=== PATIENT | female | born 1975 | race Caucasian/White ===

== ENCOUNTER 2016-08-22 21:09 | Emergency (ER) | payer SELFPAY ==
[~2016-08-22 21:09] MED LIST: PRENAT PO
== END 2016-08-22 22:25 | disposition left against medical advice (07) ==
LOC: E/R 21:09
DX: Z53.21 Procedure and treatment not carried out due to patient leaving prior to being seen by health care provider (principal)

== ENCOUNTER 2016-08-22 23:02 | Outpatient (CLI) | payer MEDICAID ==
[~2016-08-22] VITALS: Ht 144.8 cm; Wt 66.8 kg
[2016-08-22 23:29] VITALS: Ht 144.8 cm; Wt 66.8 kg
[2016-08-22 23:30] VITALS: BP 109/53; PULSE 109; RESP 18
[2016-08-22] MEDS ORDERED: LACTATED RINGER'S 1,000 ML IV SCH (23:48)
[2016-08-23] MEDS ORDERED: CEFAZOLIN 2 GM/50 ML (PMX) 50 ML IV ONE
[2016-08-23 00:22] LABS: ADD SCAN DIFF NO
[2016-08-23 00:33] LABS: BASOPHILS % 0.2 % (0.0-2.0); EOSINOPHILS # 0.1 10^3/ul (0.0-0.5); EOSINOPHILS % 0.9 % (0.0-7.0); HEMATOCRIT 33.7 % (37.0-47.0); HEMOGLOBIN 11.8 g/dl (12.0-16.0); LYMPHOCYTES % 12.6 % (15.0-51.0); MEAN CORPUSCULAR HEMOGLOBIN 31.8 pg (29.0-33.0); MEAN CORPUSCULAR VOLUME 90.8 fl (82.0-101.0); MEAN PLATELET VOLUME 13.1 fl (7.4-10.4); MONOCYTE # 0.7 10^3/ul (0.3-0.9); MONOCYTES % 8.3 % (0.0-11.0); NEUTROPHIL # 6.4 10^3/ul (1.6-7.5); NEUTROPHILS % 77.5 % (39.0-77.0); PLATELET COUNT 128 10^3/UL (140-415); RED BLOOD COUNT 3.71 10^6/ul (4.20-5.40); RED CELL DISTRIBUTION WIDTH 12.7 % (11.5-14.5); WHITE BLOOD COUNT 8.2 10^3/ul (4.8-10.8)
[2016-08-23 00:38] LABS: ALBUMIN 3.2 g/dl (3.3-4.9)
[2016-08-23 00:39] LABS: POTASSIUM 3.7 mmol/L (3.5-5.1)
[2016-08-23 00:41] LABS: ALBUMIN/GLOBULIN RATIO 1.06; BILIRUBIN,INDIRECT 0.2 mg/dl (0-1.1); BILIRUBIN,TOTAL 0.2 mg/dl (0.2-1.3); CREATININE 0.53 mg/dl (0.44-1.00); TOTAL PROTEIN 6.2 g/dl (6.1-8.1)
[2016-08-23 00:42] LABS: CALCIUM 8.3 mg/dl (8.4-10.2)
[2016-08-23 01:13] LABS: ADD UMIC YES; URINE BILIRUBIN (Dip) NEGATIVE (NEGATIVE); URINE BLOOD (Dip) NEGATIVE (NEGATIVE); URINE COLOR LT. YELLOW (YELLOW); URINE GLUCOSE (Dip) NEGATIVE (NEGATIVE); URINE KETONES (Dip) NEGATIVE (NEGATIVE); URINE LEUKOCYTE ESTERASE (Dip) 2+ (NEGATIVE); URINE NITRITE (Dip) NEGATIVE (NEGATIVE); URINE TOTAL PROTEIN (Dip) NEGATIVE (NEGATIVE); URINE UROBILINOGEN (Dip) 1.0 E.U./dL (0.1-1.0)
[2016-08-23 01:37] LABS: BACTERIA,URINE MANY; MUCUS,URINE MANY; SQUAMOUS EPITHELIAL CELL,UR MANY; URINE RBCS 0-2 /HPF (0)
--- NOTE | 2016-08-23 03:27 | QN ---
Documentation Comment [facility]/ Dr Zhao 41 y.o. A2 with an IUP at 34w 4 d with c/o feeling, weak, shaky, dizzy. Pt has a Rx for Keflex on her that she was given for a UTI in April and says she took 5 days worth of it but there are still a number of pills in that bottle ? No UTI sx's currently. Had a clinic appt 2 days ago but wasn't able to go. Pt reports green phlegm and denies having a cough although she has a dry cough repeatedly while talking to her. Denies fever, chills, nausea, vomiting. PMHx: pt states she was told she has a UTI now. Not yet treated. PSHx: C/S x 1. POBHx: x 3. C/S x 1. NKDA. O2 sat 94% on RA, 99-100% on O2. T=98.1. NK=320/53. Lungs clear to auscultation, no rales or crackles, with decent air movement. WBC 8.2. Hgb 11.8. CMP wnl. U/A 2+ leukocytes. 0-2 RBC's, many bacteria and squamous epithelial cells. NST: baseline 130 bpm with acels to 160 bpm. No decels. No UC's. A: IUP at 34w 4 d with decreased O2 saturation with a URI? UTI. P: IV hydration. IV Ancef 2 grams x 1. Azithromycin 500 mg p.o. x 1 now and will give a Rx for the rest just in case she does not go to the ER. Will have pt assessed in the ER as pt is not very helpful, nor is her spouse, in trying to delineate the severity of the sx's she has. She does report feeling better after hydration and IV Ancef but still says she feels very out of breath. JOSE TOM MD Aug 23, 2016 03:21
[2016-08-23] MEDS ORDERED: AZITHROMYCIN 250 MG TAB PO ONE (03:30)
--- NOTE | 2016-08-23 06:45 | TRIAGE ---
OB Triage Datetime Report Generated by CPN: 08/23/2016 06:45 Datetime: 08/23/2016 22:55 Stage of : OB Triage Datetime: 08/23/2016 05:02 Stage of : OB Triage Datetime: 08/23/2016 05:00 Stage of : OB Triage Labor Evaluation Frequency: 0 Monitor Mode: External Heart Rate FHR Baseline Rate: 125 Monitor Mode: External US FHR Baseline Changes: No Baseline Change Variability: Moderate 6-25 bpm Accelerations: 15X15 Decelerations: None Category: Category I Datetime: 08/23/2016 04:51 Stage of : OB Triage Datetime: 08/23/2016 04:00 Stage of : OB Triage Labor Evaluation Frequency: 0 Monitor Mode: External Heart Rate FHR Baseline Rate: 125 Monitor Mode: External US FHR Baseline Changes: No Baseline Change Variability: Moderate 6-25 bpm Accelerations: 15X15 Decelerations: None Category: Category I Datetime: 08/23/2016 03:27 Stage of : OB Triage Datetime: 08/23/2016 03:00 Stage of : OB Triage Labor Evaluation Frequency: 0 Monitor Mode: External Heart Rate FHR Baseline Rate: 135 Monitor Mode: External US FHR Baseline Changes: No Baseline Change Variability: Moderate 6-25 bpm Accelerations: 15X15 Decelerations: None Category: Category I Datetime: 08/23/2016 02:30 Stage of : OB Triage Datetime: 08/23/2016 02:00 Labor Evaluation Frequency: 0 Monitor Mode: External Heart Rate FHR Baseline Rate: 125 Monitor Mode: External US FHR Baseline Changes: No Baseline Change Variability: Moderate 6-25 bpm Accelerations: 15X15 Decelerations: None Category: Category I Datetime: 08/23/2016 01:00 Labor Evaluation Frequency: 0 Monitor Mode: External Heart Rate FHR Baseline Rate: 135 Monitor Mode: External US FHR Baseline Changes: No Baseline Change Variability: Moderate 6-25 bpm Accelerations: 15X15 Decelerations: None Category: Category I Datetime: 08/23/2016 00:54 Comments: LOSS OF CONTACT Datetime: 08/23/2016 00:00 Labor Evaluation Frequency: 0 Monitor Mode: External Heart Rate FHR Baseline Rate: 145 Monitor Mode: External US FHR Baseline Changes: No Baseline Change Variability: Moderate 6-25 bpm Accelerations: 15X15 Decelerations: None Category: Category I Datetime: 08/22/2016 23:52 EGA: 34.3 Vaginal Exam Membrane Status: Intact Datetime: 08/22/2016 23:06 Stage of : OB Triage Time of Arrival: 08/22/2016 22:50 Arrived By: Wheelchair Arrived From: Home Chief Complaint: WEAK, DIZZY, SHAKEY X3 DAYS /PT STATES SHE WAS CALLED FROM THE OFFICE TWO DAYS AG O AND HAS A UTI BUT HAS NOT BEEN TX FOR IT WAS UNABLE TO GO TO OFFICE VISIT Movement: Present Rupture of Membranes: Unsure Vaginal Bleeding: None Vaginal Discharge: Present Recent Sexual Intercouse: Denies Abdominal Trauma: Not Applicable Time Provider Notified: 08/23/2016 23:00 Provider Notified: DR TOM (Annotations: Data stored by Beth on behalf of user) Initial Plan: CALL CRISTIANE LUCIANO Maternal Assessment Level of Consciousness: Fully Conscious DTR's/Clonus: DTRs 2+; No Clonus Headache: Denies Blurred Vision: No Respiratory Effort: Unlabored; Regular Rhythm; Equal Expansion Breath Sounds, Left: Clear and Equal Breath Sounds, Right: Clear and Equal Nausea/Vomiting: Denies RUQ Epigastric Pain: Denies Lower Extremities Edema: None Degree: None Upper Extremities Edema: None Degree: None Facial Edema: None Temperature Route: Oral Fall Risk Assessment History of Falling: (0) No Secondary Diagnosis: (0) No Ambulatory Aid: (0) Bedrest/Nurse Assist IV Therapy: (0) No Gait: (0) Normal/Bedrest/Immobile Mental Status: (0) Oriented to Own Ability Fall Score: 0 Fall Risk Score Definition: No Risk: No action required Monitor Mode: External Monitor Mode: External US Pain Assessment Pain Scale: 5 Pain Presence: Intermittent Pain Location: Abdomen (Annotations: LT SIDE OF ABDOMEN) Datetime: 08/22/2016 23:00 Stage of : OB Triage
== END 2016-08-23 05:10 | disposition home or self-care (01) ==
LOC: OBT 23:02 → L-D 23:03 → OBT 08-23 05:10
PROVIDERS: ATTEND Obstetrics & Gynecology
DX: O99.513 Diseases of the respiratory system complicating pregnancy, third trimester (principal); J06.9 Acute upper respiratory infection, unspecified; O23.43 Unspecified infection of urinary tract in pregnancy, third trimester; Z3A.34 34 weeks gestation of pregnancy
CPT/HCPCS: 80053; 81001; 81003; 85025; 87086; 96360; 96361; J0690; J7120; Z7500; Z7610; G0463

== ENCOUNTER 2016-08-23 05:17 | Emergency (ER) | payer MEDICAID ==
[~2016-08-23] VITALS: Ht 162.6 cm; Wt 63.6 kg
[2016-08-23 05:24] VITALS: Ht 162.6 cm; Wt 63.6 kg
--- NOTE | 2016-08-23 06:53 | RADRPT ---
PROCEDURE: XR Chest. CLINICAL INDICATION: Shortness of breath TECHNIQUE: A single AP view of the chest was obtained. COMPARISON: None. FINDINGS: There is mild elevation of the right diaphragm. Right basilar left mid lung interstitial opacities are noted. No pleural effusion or pneumothorax is seen. The cardiomediastinal silhouette is within normal limits for size. The osseous structures are unremarkable. IMPRESSION: Right basilar and left mid lung interstitial opacities, may reflect atelectasis or pneumonia. RPTAT: HH .Elissa Rodriguez MD, MD Date Time Electronically viewed and signed by .Elissa Rodriguez MD, MD on 08/23/2016 06:53 .G/
--- NOTE | 2016-08-23 07:21 | ERD ---
ER Documentation Chief Complaint Date/Time DATE: 08/23/16 TIME: 613 Chief Complaint dizziness,came from and cleared by OB HPI 41-year-old female presents to the emergency department for dizziness and shortness of breath. Patient states she is having a nonspecific dizziness with no focal neurologic symptoms and a nonspecific shortness of breath with a cough without production of sputum or hemoptysis for the last 2-3 days. Patient reports no abdominal pain, vaginal bleeding or cramping. Her symptoms continued and she presented to the emergency department where she was initially seen by the labor and delivery section of the hospital. Labs at that time were noted to be normal except for a urinary tract infection and she was recommended azithromycin for both the UTI as well as for a possible pneumonia. She was then referred to the emergency department for further evaluation. Upon arrival, she has no further complaints. She describes her shortness of breath only when coughing. She reports no PND or orthopnea. She reports no swelling. She reports no chest pain palpitations or fevers. ROS All systems reviewed and are negative except as per history of present illness. Medications Home Meds Reported Medications Multivit/Min/Fol Ac/Iron/Pren* ( S*) 1 Tab Tab, 1 TAB PO DAILY, TAB 03/19/14 Allergies Allergies: Coded Allergies: No Known Allergy (Verified , 08/22/16) PMhx/Soc Medical and Surgical Hx: pt denies Medical Hx History of Surgery: Yes () Anesthesia Reaction: No Hx Neurological Disorder: No Hx Respiratory Disorders: No Hx Cardiac Disorders: No Hx Psychiatric Problems: No Hx Miscellaneous Medical Probl: Yes (Vaginal Delivery x 3; ) Hx Alcohol Use: No Hx Substance Use: No Hx Tobacco Use: No Smoking Status: Never smoker FmHx Noncontributory for chief complaint Physical Exam Vitals Vital Signs Date Time Temp Pulse Resp B/P Pulse Ox O2 Delivery O2 Flow Rate FiO2 08/23/16 05:24 97.9 98 13 109/62 98 Physical Exam GENERAL: The patient is well developed and appropriate for usual state of health in no apparent distress HEENT: Pupils equal, round, and reactive to light. EOMI. There is no scleral icterus. NECK: C-spine is soft and supple, there is no meningismus. There is no cervical lymphadenopathy. LUNGS: Occasional crackle at bilateral base with no tachypnea or retractions HEART: Regular rate and rhythm, no murmurs, clicks, rubs or gallops. ABDOMEN: Soft and nondistended. Gravid with size appropriate for dates. EXTREMITIES: There is no peripheral cyanosis or edema. No focal swelling or erythema. NEURO: The patient moves all four extremities with 5/5 strength. Cranial nerves II - XII are intact. Normal gait. Alert and oriented SKIN: There is no apparent rash or petechiae. HEME/LYMPHATIC: There is no evidence of excessive bruising or lymphedema. PSYCHIATRIC: The patient does not appear anxious or depressed. Procedures/MDM Patient was taken to a room, seen and evaluated. Comfort measures were initiated. Diagnostic tests were ordered and reviewed. 3 LEAD RHYTHM STRIP: Normal sinus rhythm without ectopy EK lead EKG reviewed by myself: Normal Sinus Rhythm Normal Disney and intervals No ST elevation, depression, or T wave inversion Impression: Normal EKG RADIOLOGY: reviewed with the radiologist CONSULTATION: OB review was noted. REEVALUATION: Patient remained stable and comfortable in the emergency department with no obvious shortness of breath MEDICAL DECISION MAKIN-year-old female who is gravid presents to the emergency department with nonspecific dizziness and shortness of breath. Her lab tests are normal with no indications of infection, electrical I concerns her severe anemia. Her blood pressure does not indicate eclampsia or preeclampsia. She does have evidence of a questionable mild UTI. More importantly, she has some crackles at her bases with nonspecific findings on her chest x-ray. As per the conversations with the paperboard machine operator, will be treating with antibiotics for both the UTI as well as possible pneumonia. At this time, she shows no obvious cardiac concerns with a normal EKG and no signs of valve deficiency or evidence of other congestive heart failure. Overall, she seems to be clinically well and appropriate for outpatient supportive care. I have discussed all clinical findings with her as well as the need for follow -up. Departure Diagnosis: Primary Impression: Dizziness Condition: Stable Patient Instructions: Dizziness, Unk Cause Referrals: ANA OROZCO (PCP) Additional Instructions: See your doctor for follow-up as discussed. Take a copy of your test results, if appropriate, to this follow-up visit. See your doctor or return here if your symptoms do not improve as expected. At any time, please return to the emergency department for any change or worsening in her symptoms. DEO RODRIGUEZ Aug 23, 2016 07:21
[2016-08-23 07:33] VITALS: BP 132/65; PULSE 77; RESP 18
== END 2016-08-23 07:38 | disposition home or self-care (01) ==
LOC: E/R 05:17
DX: O99.89 Other specified diseases and conditions complicating pregnancy, childbirth and the puerperium (principal); R42 Dizziness and giddiness; Z3A.00 Weeks of gestation of pregnancy not specified
CPT/HCPCS: 71010; 93005; Z7502

== ENCOUNTER 2016-10-02 17:55 | Inpatient (IN) | payer MEDICAID ==
[~2016-10-02] VITALS: Ht 149.9 cm; Wt 70.0 kg
--- NOTE | 2016-10-02 18:53 | TRIAGE ---
OB Triage Datetime Report Generated by CPN: 10/02/2016 18:53 Datetime: 10/02/2016 18:51 Time of Arrival: 10/02/2016 17:50 EGA: 40.2 Arrived By: Ambulatory Arrived From: Dr. Vivas Chief Complaint: UC'S Movement: Present Contractions: Regular Contractions: 5-7 Rupture of Membranes: Denies Vaginal Bleeding: None Vaginal Discharge: Denies Recent Sexual Intercouse: Denies Abdominal Trauma: Not Applicable Patient Complaints: Contractions; Cramping; Back Pain Time Provider Notified: 10/02/2016 18:40 Provider Notified: DR. GRIFFIN Initial Plan: SVE, NST Datetime: 10/02/2016 18:48 Vaginal Exam Dilatation (cms): 1.5 Effacement (%): 50 Station: -3 Exam By: DR. GRIFFIN Cervix, Consistency: Moderate Datetime: 10/02/2016 18:27 Vaginal Exam Dilatation (cms): 2.5 Effacement (%): 60 Station: -3 Cervix, Consistency: Soft Presentation 'A': Cephalic Datetime: 08/22/2016 23:52 EGA: 34.3 Vaginal Bleeding: None Vaginal Discharge: Denies Recent Sexual Intercouse: Denies Datetime: 08/22/2016 23:06 Fall Risk Assessment Fall Score: 0 Fall Risk Score Definition: No Risk: No action required
[2016-10-02 19:03] VITALS: Ht 149.9 cm; Wt 70.0 kg
[2016-10-02 19:04] VITALS: BP 129/59; PULSE 95; RESP 20
[2016-10-02] MEDS ORDERED: OXYTOCIN 30 UNITS/LR 500 ML IV PRN (19:30)
[2016-10-02] MEDS ORDERED: CARBOPROST 250 MCG INJ IM PRN (19:30)
[2016-10-02] MEDS ORDERED: METHYLERGONOVINE 0.2 MG INJ IM PRN (19:30)
[2016-10-02] MEDS ORDERED: CEFAZOLIN 2 GM/50 ML (PMX) 50 ML IV SCH (19:30)
[2016-10-02] MEDS ORDERED: MISOPROSTOL 200 MCG TAB PR PRN (19:30)
[2016-10-02 20:00] LABS: ADD SCAN DIFF NO
[2016-10-02 20:09] LABS: BASOPHILS % 0.3 % (0.0-2.0); EOSINOPHILS # 0.1 10^3/ul (0.0-0.5); EOSINOPHILS % 0.9 % (0.0-7.0); HEMOGLOBIN 12.3 g/dl (12.0-16.0); LYMPHOCYTES # 1.3 10^3/ul (0.8-2.9); LYMPHOCYTES % 18.2 % (15.0-51.0); MEAN CORPUSCULAR HEMOGLOBIN 30.3 pg (29.0-33.0); MEAN CORPUSCULAR HGB CONC 34.2 g/dl (32.0-37.0); MEAN CORPUSCULAR VOLUME 88.7 fl (82.0-101.0); MEAN PLATELET VOLUME 13.5 fl (7.4-10.4); MONOCYTE # 0.6 10^3/ul (0.3-0.9); MONOCYTES % 7.9 % (0.0-11.0); PLATELET COUNT 132 10^3/UL (140-415); RED BLOOD COUNT 4.06 10^6/ul (4.20-5.40); RED CELL DISTRIBUTION WIDTH 12.4 % (11.5-14.5); WHITE BLOOD COUNT 6.9 10^3/ul (4.8-10.8)
--- NOTE | 2016-10-02 20:11 | HP ---
Date/Time of Note Date/Time of Note DATE: 10/02/16 TIME: 20:08 OB - History Hx of Present Free Text/Dictation 41 years old with IUP at 40 weeks with care with Dr. Zhao and History of section,. presented with complaint of uterine contractions every 3-4 mi. She rates her contractions 8/10. Patient had a history of low transverse 7 years ago. records are available. Her care was uncomplicated. After discussion about the options including TOLAC versus repeat section she desired to proceed with repeat section. Estimated Due Date: Oct 02, 2016 : 5 Para: 4 Spontaneous : 0 Care: Good Care Obstetrical Complications: None Medical Complications: None Past Family/Social History * Past Medical, Surgical, Family and Obstetric Histories reviewed from chart. Blood Type: B+ RPR/VDRL: Unknown GBS Status: Negative HBsAG: Negative OB Admission Exam Vital Signs Vital Signs Vital Signs Date Time Temp Pulse Resp B/P Pulse Ox O2 Delivery O2 Flow Rate FiO2 10/02/16 19:04 97.7 95 20 129/59 98 Room Air Physical Exam HEENT: WNL Lungs: Clear Abdomen: WNL Extremities: Normal Cervical Dilatation: 1cm Effacement: 50% Station: -1 Accelerations: Accelerations Present Decelerations: No Decelerations Varibility: Moderate Contractions on Admission: < 5 Minutes Apart Intensity: Moderate OB Assessment/Plan Other Assessment: IUP at 40 weeks and 1 day History of Prior section Uterine contractions Desires Repeat section after discussion about the options including TOLAC versus repeat section. Next Risk and benefits of section including risk of infection, bleeding damage to surrounding structures including bowel and bladder and risk of transfusion including but not limited to blood borne infection including HIV, hepatitis B and C and transfusion reactions discussed with the patient in detail and informed consent was obtained. All questions were answered to the patient best satisfaction. Had not signed tubal ligation. Her consider vasectomy., WILLIAM GRIMM MD Oct 02, 2016 20:11
[2016-10-02 20:15] LABS: INR 1.03; PARTIAL THROMBOPLASTIN TIME 25.7 Sec (25.0-35.0); PROTIME 13.5 Sec (12.2-14.2); PT RATIO 1.1
[2016-10-02] MEDS ORDERED: ONDANSETRON 4 MG INJ ONE (20:56)
[2016-10-02] MEDS ORDERED: CITRIC ACID/NA CITRATE 30 ML CUP ONE (20:56)
[2016-10-02] MEDS ORDERED: ONDANSETRON 4 MG INJ IV STA (20:59)
[2016-10-02] MEDS ORDERED: CITRIC ACID/NA CITRATE 30 ML CUP PO ONE (21:00)
[2016-10-02] MEDS ORDERED: LACTATED RINGER'S 1,000 ML IV ONE (21:30)
[2016-10-02] MEDS ORDERED: TERBUTALINE 1 ML ONE (23:12)
[2016-10-02] MEDS ORDERED: LACTATED RINGER'S 1,000 ML IV SCH (23:30)
[2016-10-02] MEDS ORDERED: TERBUTALINE 1 MG/ML INJ SC ONE (23:30)
[2016-10-03] MEDS ORDERED: FENTAnyl 50 MCG/ML VIAL ONE (00:17)
[2016-10-03] MEDS ORDERED: morphine SULFATE/PF (10 MG/10 ML) INJ ONE (00:17)
[2016-10-03] MEDS ORDERED: CEFAZOLIN 1 GM INJ ONE (00:24)
[2016-10-03] MEDS ORDERED: PHENYLephrine (100 MCG/ML) 5ML SYG ONE (00:24)
[2016-10-03] MEDS ORDERED: METOCLOPRAMIDE 10 MG INJ ONE (00:28)
[2016-10-03] MEDS ORDERED: OXYTOCIN 30 UNITS/LR 500 ML IV ONE (00:28)
[2016-10-03] MEDS ORDERED: MEPERIDINE 100 MG INJ ONE (00:46)
--- NOTE | 2016-10-03 01:35 | OPR ---
Operative Report Planned Procedure Free Text/Dictation Patient with history of section 1 currently with uterine contractions at 40 weeks and 1 day desires to proceed with section after discussion about all the options. She was consented. Risk and benefit of procedure discussed in detail including risk of infection, bleeding damage to surrounding structures including bowel and bladder and risk of transfusion including but not limited to blood borne infection including HIV, hepatitis B and C and transfusion reactions. Informed consent was obtained. Procedure date Oct 03, 2016 Procedure(s) Repeat section Performed by: WILLIAM GRIMM MD Assisting provider: ERICK MARQUEZ MD Anesthesiologist: LEONARD GABRIEL MD Pre-procedure diagnosis IUP at 40 weeks and 1 day History of section 1 Desires repeat section Painful contractions Anesthesia Type: spinal Procedure Description Under satisfactory spinal anesthesia, the patient was prepped and draped and placed in a supine position, tilted to the left. Pfannenstiel incision was made , carried through the subcutaneous tissue. Bleeders brought under control with electrocautery. Fascia incised to the length of the incision. Rectus muscles from the fascia, divided midline. . Peritoneum exposed, entered through a transverse incision. Exploration of abdomen revealed gravid uterus, there was adhesions of the uterus to the right side of the abdominal wall. Bladder flap was developed. Transverse incision was made in the lower segment of the uterus. Amniotic sac ruptured. Clear amniotic fluid noted. The position was ballotable and had unstable lie. Due to difficulty delivering of the head through the incision first there rectus muscle was transected transversely in both sides about 4 cm each side. Then due to difficulty delivering of the head through the incision due to high sensation kiwi vacuum was applied over the vertex and while the operating room assistant was making fundal pressure the baby's head was delivered through the incision. After delivery of the head immediately nasal oropharyngeal suction was performed. The baby was handed to the team for immediate attention. The placenta was delivered manually intact. Uterine cavity was cleaned with wet sponge and drainage established. Uterus closed in 2 layers using 0 Monocryl] in continuous fashion. The first layer used for hemostasis and the second layer used for imbrication. peritoneal cavity irrigated with warm saline. Excellent hemostasis of the incision obtained sponge, needle and instrument count reported to be correct. Abdominal peritoneum closed with 2-0 chromic continuously. Rectus muscle approximated with 0 chromic. Fascia closed with 1-0 Vicryl continuously [], and skin closed with 3-0 Monocryl subcutaneously. Estimated blood loss 600 mL. Patient tolerated the procedure well. Counts were correct 2. Patient was transferred to recovery room in stable condition. Fundus was firm at the time of delivery. Post-Procedure Findings: Live Baby boy [], Apgars 8 and [9], weight 8 lb in vertex position Specimen removed: Yes Specimen description Cord blood Complications: None Pt Condition post procedure: stable Disposition: PACU Physician Certification I, the undersigned physician, hereby certify that I have discussed the procedure described in this consent form with this patient (or the patient's legal sales representative cash registers), including: * The risk and benefits of the procedure; * Any adverse reactions that may reasonably be expected to occur; * Any alternative efficacious methods of treatment which may be medically viable ; * The potential problems that may occur during recuperation; * Potential for blood transfusion and associated risks/benefits; and * Any research or economic interest I may have regarding this treatment. I further certify that the patient/legally responsible person was encouraged to ask question and that all questions were answered. WILLIAM GRIMM MD Oct 03, 2016 01:35
[2016-10-03] MEDS: LACTATED RINGER'S 1,000 ML IV SCH ×3 (01:36→17:50)
[2016-10-03] MEDS ORDERED: CARBOPROST 250 MCG INJ IM PRN (02:00)
[2016-10-03] MEDS ORDERED: HYDROmorphONE 1 MG/ML SYG IV PRN ×2 (02:00)
[2016-10-03] MEDS ORDERED: NALOXONE (0.4 MG/ML) INJ IV PRN (02:00)
[2016-10-03] MEDS ORDERED: OXYTOCIN 30 UNITS/LR 500 ML IV PRN (02:00)
[2016-10-03] MEDS ORDERED: DIPHENHYDRAMINE 50 MG INJ IV PRN (02:00)
[2016-10-03] MEDS ORDERED: MISOPROSTOL 200 MCG TAB PR PRN (02:00)
[2016-10-03] MEDS ORDERED: METHYLERGONOVINE 0.2 MG INJ IM PRN (02:00)
[2016-10-03] MEDS ORDERED: LANOLIN 7 GM TUBE TOP PRN (02:00)
[2016-10-03] MEDS ORDERED: PROCHLORPERAZINE 10 MG INJ IV PRN (02:00)
[2016-10-03] MEDS ORDERED: ONDANSETRON 4 MG INJ IV PRN (02:00)
--- NOTE | 2016-10-03 02:03 | DELSUM ---
Delivery Summary A-C Datetime Report Generated by CPN: 10/03/2016 02:03 DELIVERY PERSONNEL Tobacco Warehouse Manager: Long, Binta MATERNAL INFORMATION Delivery Anesthesia: Spinal Medications in Delivery: SEE ANESTHESIA Estimated Blood Loss (ml): 600 Placenta Cultured: No Maternal Complications: None LABOR SUMMARY EDC: 09/30/2016 00:00 No. Babies in Womb: 1 Attempted: No Labor Anesthesia: Intrathecal LABOR INFORMATION Reason for Induction: Not Applicable Oxytocin: N/A Group B Beta Strep: Negative Antibiotics # of Doses: 1 Antibiotics Time of Last Dose: 10/03/2016 00:25 Steroids Given: None Reason Steroids Not Administered: Not Applicable MEMBRANES Membranes Rupture Method: Artificial Rupture of Membranes: 10/03/2016 00:42 Length of Rupture (hr): 0.03 Amniotic Fluid Color: Bloody Amniotic Fluid Amount: Moderate Amniotic Fluid Odor: None STAGES OF LABOR Stage 3 hr: 0 Stage 3 min: 0 CSECTION DELIVERY Primary Indication: Repeat Elective CSection Urgency: Non Elective CSection Incidence: Repeat Labor: Labor Elective: Nonelective CSection Incision: Lower Uterine Transverse BABY A INFORMATION Delivery Date/Time: 10/03/2016 00:44 Method of Delivery: Born in Route : No : N/A Forceps: N/A Vacuum Extraction: N/A Shoulder Dystocia : N/A SHOULDER DYSTOCIA BABY A Infant Delivery Date/Time: 10/03/2016 00:44 PRESENTATION/POSITION BABY A Presentation: Cephalic Cephalic Presentation: Vertex Vertex Position: Left Occipital Anterior Breech Presentation: N/A PLACENTA INFORMATION BABY A Placenta Delivery Time : 10/03/2016 00:44 Placenta Method of Delivery: Spontaneous Placenta Status: Delivered SCORES BABY A Heart Rate 1 min: >100 bpm Resp Effort 1 min: Good Cry Reflex Irritability 1 min: Cough/Sneeze/Pulls Away Muscle Tone 1 min: Active Motion Color 1 min: Blue/Pale Resuscitation Effort 1 min: Tactile Stimulation SCORE 1 MIN: 8 Heart Rate 5 min: >100 bpm Resp Effort 5 min: Good Cry Reflex Irritability 5 min: Cough/Sneeze/Pulls Away Muscle Tone 5 min: Active Motion Color 5 min: Body [place], Extremit Blue Resuscitation Effort 5 min: Tactile Stimulation SCORE 5 MIN: 9 INFORMATION BABY A Gestational Age at Delivery: 40.2 Gestational Status: Full Term- 39- 40.6 Weeks Infant Outcome : Liveborn Infant Condition : Stable Infant Sex: Male IDENTIFICATION/MEDS BABY A ID Band Number: [id number] ID Band Location: Right Leg; Left Arm Sensor Applied: Yes Sensor Number: [id number] Sensor Location : Cord Clamp Vitamin K Given : Not Given Erythromycin Given: Not Given WEIGHT/LENGTH BABY A Infant Birthweight (gm): 3660 Weight (lb): 8 Infant Weight (oz): 1 Length (in): 19.00 Length (cm): 48.26 CORD INFORMATION BABY A No. Cord Vessels: 3 Nuchal Cord : N/A Cord Blood Taken: Yes Infant Suction: Mouth; Nose ASSESSMENT BABY A Complications: None Physical Findings at Delivery: Within Normal Limits Infant Respirations: Appears Normal Electronic System Engineer/ALS Called : No Infant Care By: LAINA ELDER; SARITA, RT Transferred To: Remains with Mother
[2016-10-03] MEDS: OXYTOCIN 30 UNITS/LR 500 ML IV SCH ×2 (02:27→06:20)
[2016-10-03] MEDS: KETOROLAC 30 MG INJ IV PRN ×2 (02:34→22:05)
[2016-10-03 05:04] VITALS: BP 102/58; PULSE 86; RESP 18
[2016-10-03 08:00] VITALS: BP 105/56; PULSE 84; RESP 18
[2016-10-03] MEDS: MULTIVIT/MIN/FOLATE/IRON/PREN TAB PO SCH (09:07)
[2016-10-03 11:28] LABS: ADD SCAN DIFF NO
[2016-10-03 11:33] LABS: BASOPHILS % 0.1 % (0.0-2.0); EOSINOPHILS % 0.3 % (0.0-7.0); HEMATOCRIT 28.1 % (37.0-47.0); HEMOGLOBIN 9.2 g/dl (12.0-16.0); LYMPHOCYTES % 13.5 % (15.0-51.0); MEAN CORPUSCULAR HEMOGLOBIN 29.9 pg (29.0-33.0); MEAN CORPUSCULAR HGB CONC 32.7 g/dl (32.0-37.0); MEAN CORPUSCULAR VOLUME 91.2 fl (82.0-101.0); MONOCYTE # 0.6 10^3/ul (0.3-0.9); NEUTROPHIL # 5.8 10^3/ul (1.6-7.5); NEUTROPHILS % 77.8 % (39.0-77.0); PLATELET COUNT 103 10^3/UL (140-415); RED BLOOD COUNT 3.08 10^6/ul (4.20-5.40); RED CELL DISTRIBUTION WIDTH 12.4 % (11.5-14.5); WHITE BLOOD COUNT 7.4 10^3/ul (4.8-10.8)
[2016-10-03 12:03] VITALS: BP 98/58; RESP 18
[2016-10-03 16:00] VITALS: BP 103/58; PULSE 88; RESP 18
[2016-10-03 20:20] VITALS: BP 110/66; PULSE 107; RESP 18
[2016-10-04] MEDS: LACTATED RINGER'S 1,000 ML IV SCH ×3 (01:36→17:36)
[2016-10-04 04:15] VITALS: BP 97/53; PULSE 80; RESP 20
[2016-10-04] MEDS: IBUPROFEN 600 MG TAB PO SCH ×4 (05:44→23:27)
[2016-10-04 07:39] LABS: ADD SCAN DIFF NO
[2016-10-04 07:49] LABS: BASOPHILS % 0.1 % (0.0-2.0); EOSINOPHILS # 0.1 10^3/ul (0.0-0.5); EOSINOPHILS % 1.6 % (0.0-7.0); HEMATOCRIT 26.1 % (37.0-47.0); HEMOGLOBIN 8.5 g/dl (12.0-16.0); LYMPHOCYTES # 1.3 10^3/ul (0.8-2.9); LYMPHOCYTES % 17.5 % (15.0-51.0); MEAN CORPUSCULAR HEMOGLOBIN 29.8 pg (29.0-33.0); MEAN CORPUSCULAR HGB CONC 32.6 g/dl (32.0-37.0); MEAN CORPUSCULAR VOLUME 91.6 fl (82.0-101.0); MEAN PLATELET VOLUME 13.8 fl (7.4-10.4); MONOCYTE # 0.7 10^3/ul (0.3-0.9); MONOCYTES % 9.3 % (0.0-11.0); NEUTROPHIL # 5.2 10^3/ul (1.6-7.5); NEUTROPHILS % 71.1 % (39.0-77.0); PLATELET COUNT 115 10^3/UL (140-415); RED BLOOD COUNT 2.85 10^6/ul (4.20-5.40); RED CELL DISTRIBUTION WIDTH 12.6 % (11.5-14.5); WHITE BLOOD COUNT 7.3 10^3/ul (4.8-10.8)
[2016-10-04 08:00] VITALS: BP 92/48; PULSE 82; RESP 17
[2016-10-04] MEDS: MULTIVIT/MIN/FOLATE/IRON/PREN TAB PO SCH (12:09)
--- NOTE | 2016-10-04 15:01 | PN ---
Date/Time of Note Date/Time of Note DATE: 10/04/16 TIME: 15:00 OB Subjective Subjective Subjective Post day 1 Afebrile vital signs are stable abdomen soft bowel sounds present but weak abdomen is slightly distended ambulation recommended, lochia is normal extremity normal Laboratory Tests Test 10/04/16 06:00 White Blood Count 7.310^3/ul Red Blood Count 2.8510^6/ul Hemoglobin 8.5g/dl Hematocrit 26.1% Mean Corpuscular Volume 91.6fl Mean Corpuscular Hemoglobin 29.8pg Mean Corpuscular Hemoglobin Concent 32.6g/dl Red Cell Distribution Width 12.6% Platelet Count 77305^3/UL Mean Platelet Volume 13.8fl Neutrophils % 71.1% Lymphocytes % 17.5% Monocytes % 9.3% Eosinophils % 1.6% Basophils % 0.1% Nucleated Red Blood Cells % 0.0/100WBC Neutrophils # 5.210^3/ul Lymphocytes # 1.310^3/ul Monocytes # 0.710^3/ul Eosinophils # 0.110^3/ul Basophils # 0.010^3/ul Nucleated Red Blood Cells # 0.010^3/ul Current Medications Medications (Trade) Dose Ordered Sig/Anibal Route PRN Reason Start Time Stop Time Status Last Admin Dose Admin Cefazolin Sodium/ Dextrose 50 ml @ 100 mls/hr ONCE IV 10/02/16 19:30 10/03/16 01:40 DC Oxytocin/Lactated Ringer's 500 ml @ 0 mls/hr ONCE PRN IV For Hemorrhage Management 10/02/16 19:30 10/03/16 01:41 DC Methylergonovine Maleate (Methergine) 0.2 mg ONCE PRN IM VAGINAL BLEEDING 10/02/16 19:30 10/03/16 01:41 DC Carboprost Tromethamine (Hemabate) 250 mcg ONCE PRN IM VAGINAL BLEEDING 10/02/16 19:30 10/03/16 01:41 DC Misoprostol (Cytotec) 1,000 mcg ONCE PRN UT VAGINAL BLEEDING 10/02/16 19:30 10/03/16 01:41 DC Citric Acid/ Sodium Citrate (Bicitra) 30 ml STK-MED ONCE .ROUTE 10/02/16 20:56 10/02/16 20:57 DC Ondansetron HCl (Zofran Inj) 4 mg STK-MED ONCE .ROUTE 10/02/16 20:56 10/02/16 20:57 DC Ondansetron HCl (Zofran Inj) 4 mg ONCE STAT IV 10/02/16 20:59 10/02/16 21:01 DC 10/02/16 21:09 Citric Acid/ Sodium Citrate 30 ml 30 ml ONCE ONCE PO 10/02/16 21:00 10/02/16 21:01 DC 10/02/16 21:09 Lactated Ringer's 1,000 ml @ 1,000 mls/hr Q1H ONCE IV 10/02/16 21:30 10/02/16 22:29 DC 10/02/16 21:09 Terbutaline Sulfate (Brethine) 1 ml @ ud STK-MED ONCE .ROUTE 10/02/16 23:12 10/02/16 23:13 DC Terbutaline Sulfate 0.25 mg 0.25 mg ONCE ONCE SC 10/02/16 23:30 10/02/16 23:31 DC 10/02/16 23:21 Lactated Ringer's (Lr) 1,000 ml @ 125 mls/hr Q8H IV 10/02/16 23:30 10/03/16 01:41 DC 10/02/16 23:25 Fentanyl (Sublimaze) 100 mcg STK-MED ONCE .ROUTE 10/03/16 00:17 10/03/16 00:18 DC Morphine Sulfate (Duramorph) 10 mg STK-MED ONCE .ROUTE 10/03/16 00:17 10/03/16 00:18 DC Cefazolin Sodium (Ancef) 1 gm STK-MED ONCE .ROUTE 10/03/16 00:24 10/03/16 00:25 DC Phenylephrine HCl (Tacos-Synephrine Inj Syg) 500 mcg STK-MED ONCE .ROUTE 10/03/16 00:24 10/03/16 00:25 DC Metoclopramide HCl 10 mg 10 mg STK-MED ONCE .ROUTE 10/03/16 00:28 10/03/16 00:29 DC Oxytocin/Lactated Ringer's 500 ml @ ud STK-MED ONCE IV 10/03/16 00:28 10/03/16 00:29 DC Meperidine HCl 100 mg 100 mg STK-MED ONCE .ROUTE 10/03/16 00:46 10/03/16 00:47 DC Lactated Ringer's 1,000 ml @ 125 mls/hr Q8H IV 10/03/16 01:36 10/03/16 17:50 Oxytocin/Lactated Ringer's 500 ml @ 125 mls/hr Q4H IV 10/03/16 01:36 10/03/16 09:35 DC 10/03/16 06:20 Oxycodone/ Acetaminophen (Percocet (5/ 325)) 1 tab Q4H PRN PO PAIN LEVEL 4-6 10/03/16 02:00 Ibuprofen (Motrin) 600 mg Q6 PO 10/04/16 06:00 10/04/16 12:09 Simethicone (Mylicon) 160 mg Q8H PRN PO DISTENSION/GAS/BLOATING 10/03/16 02:00 Lanolin (Vve-J-Bzaxkd) 1 applic BEDSIDE MEDICATION PRN TOP BEDSIDE FOR KELSY TO NIPPLES 10/03/16 02:00 10/03/16 22:05 Diphtheria/ Tetanus/Acell Pertussis (Adacel) 0.5 ml ONCE ONCE IM* 10/06/16 09:00 10/06/16 09:01 Measles/Mumps/ Rubella Vaccine Live 0.5 ml 0.5 ml ONCE ONCE SC* 10/06/16 09:00 10/06/16 09:01 Oxytocin/Lactated Ringer's 500 ml @ 0 mls/hr ONCE PRN IV For Hemorrhage Management 10/03/16 02:00 Methylergonovine Maleate (Methergine) 0.2 mg ONCE PRN IM VAGINAL BLEEDING 10/03/16 02:00 Carboprost Tromethamine (Hemabate) 250 mcg ONCE PRN IM VAGINAL BLEEDING 10/03/16 02:00 Misoprostol (Cytotec) 1,000 mcg ONCE PRN UT VAGINAL BLEEDING 10/03/16 02:00 Prenat Multivit/ [place]/Iron/Folic Ac ( S) 1 tab DAILY PO 10/03/16 09:00 10/04/16 12:09 Naloxone HCl (Narcan) 0.1 mg Q2M PRN IV FOR RESP RATE 8 OR LESS 10/03/16 02:00 10/04/16 00:20 DC Ketorolac Tromethamine (Toradol) 30 mg Q6H PRN IV PAIN 10/03/16 02:00 10/04/16 00:20 DC 10/03/16 22:05 Hydromorphone HCl (Dilaudid) 0.2 mg Q3H PRN IV PAIN LEVEL 1-5 10/03/16 02:00 10/04/16 00:20 DC Hydromorphone HCl (Dilaudid) 0.4 mg Q3H PRN IV PAIN LEVEL 6-10 10/03/16 02:00 10/04/16 00:20 DC Diphenhydramine HCl (Benadryl) 25 mg Q6H PRN IV ITCHING 10/03/16 02:00 10/04/16 00:20 DC Ondansetron HCl (Zofran Inj) 4 mg Q6H PRN IV NAUSEA AND/OR VOMITING 10/03/16 02:00 10/04/16 00:20 DC Prochlorperazine (Compazine Inj) 10 mg ONCE PRN IV NAUSEA AND/OR VOMITING 10/03/16 02:00 10/04/16 00:20 DC Miscellaneous Information (* Miscellaneous Pharmacy Order) Duramorph: 0.2 mg Spi... GIVEN XX 10/03/16 02:00 SERENA GRIFFIN MD Oct 04, 2016 15:01
[2016-10-04 16:00] VITALS: BP 134/67; PULSE 82; RESP 18
[2016-10-04 20:00] VITALS: BP 96/56; PULSE 87; RESP 18
[2016-10-04] MEDS: OXYCODONE/ACETAMINOPHEN (5/325) TAB PO PRN (20:55)
[2016-10-05] MEDS: LACTATED RINGER'S 1,000 ML IV SCH ×2 (01:36→09:36)
[2016-10-05 04:00] VITALS: BP 92/55; PULSE 78; RESP 18
[2016-10-05] MEDS: IBUPROFEN 600 MG TAB PO SCH ×3 (06:12→17:42)
[2016-10-05 08:40] VITALS: BP 118/56; PULSE 90; RESP 16
[2016-10-05] MEDS: MULTIVIT/MIN/FOLATE/IRON/PREN TAB PO SCH (09:07)
--- NOTE | 2016-10-05 12:57 | PN ---
Date/Time of Note Date/Time of Note DATE: 10/05/16 TIME: 12:55 OB Subjective Subjective Subjective Post day 2 Afebrile vital signs stable abdomen soft incision dry healing well bowel sounds present normal bowel movement extremities normal plan of a.m. discharge discussed with the patient SERENA GRIFFIN MD Oct 05, 2016 12:57
[2016-10-05 16:00] VITALS: BP 114/56; PULSE 85; RESP 16
[2016-10-05 20:00] VITALS: BP 106/58; PULSE 94; RESP 20
[2016-10-05] MEDS: OXYCODONE/ACETAMINOPHEN (5/325) TAB PO PRN (20:10)
[2016-10-06] MEDS: IBUPROFEN 600 MG TAB PO SCH ×3 (00:01→12:22)
[2016-10-06 04:00] VITALS: BP 118/46; PULSE 88; RESP 19
[2016-10-06 08:10] VITALS: BP 108/63; PULSE 83; RESP 17
[2016-10-06] MEDS ORDERED: DIPHTH/TET/ACEL PERTUSS (ADULT) 0.5 ML VIAL IM* ONE (09:00)
[2016-10-06] MEDS ORDERED: MEASLES,MUMPS,RUBELLA VACCINE INJ SC* ONE (09:00)
[2016-10-06] MEDS: OXYCODONE/ACETAMINOPHEN (5/325) TAB PO PRN (09:51)
[2016-10-06] MEDS: MULTIVIT/MIN/FOLATE/IRON/PREN TAB PO SCH (09:51)
--- NOTE | 2016-10-06 10:32 | QN ---
Documentation Comment POD#3 is stable afebrile tolerates diet No VB +BM +voids Asymptomatic no sign of depression VS Stable Gen NAD Abd soft NT ND Incision intact Genitalia No blood at perinium --->Discharge plan NEY NIELSEN M.D. Oct 06, 2016 10:32
--- NOTE | 2016-10-06 10:33 | DS ---
Date/Time of Note Date/Time of Note DATE: 10/06/16 TIME: 10:32 Discharge Summary Admission/Discharge Info Admit Date/Time Oct 02, 2016 at 18:40 Discharge Date/Time Final Diagnosis repeat c/section Labor Patient Condition: Stable Procedures Repeat c/section Hospital Course uneventful Home Meds Reported Medications Multivit/Min/Fol Ac/Iron/Pren* ( S*) 1 Tab Tab, 1 TAB PO DAILY, TAB 03/19/14 NEY NIELSEN M.D. Oct 06, 2016 10:33
== END 2016-10-06 13:30 | disposition home or self-care (01) | DRG 766 ==
LOC: OBT 17:55 → L-D 17:55 → OBT 18:40 → L-D 18:40 → PP1 10-03 04:28
PROVIDERS: ADMIT Obstetrics & Gynecology; ATTEND Obstetrics & Gynecology
PROC: 10D00Z1 Extraction of Products of Conception, Low, Open Approach (ICD-10-PCS; principal; 2016-10-03)
DX: O34.211 Maternal care for low transverse scar from previous cesarean delivery (principal); O48.0 Post-term pregnancy; O09.523 Supervision of elderly multigravida, third trimester; Z3A.40 40 weeks gestation of pregnancy; Z37.0 Single live birth
CPT/HCPCS: 85025; 85610; 85730; 86592; 86850; 86900; 86901; 87340; 90715; 94760; G0463; J0690; J1885; J2175; J2274; J2370; J2405; J2590; J2765; J3010; J3105; J7120

== ENCOUNTER 2017-01-16 11:26 | Emergency (ER) | payer MEDICAID ==
[~2017-01-16] VITALS: Ht 154.9 cm; Wt 56.0 kg
[2017-01-16 11:32] VITALS: Ht 154.9 cm; Wt 56.0 kg
[2017-01-16] MEDS ORDERED: FAMOTIDINE 20 MG INJ IV STA (12:32)
[2017-01-16] MEDS ORDERED: ONDANSETRON 4 MG INJ IV STA (12:32)
[2017-01-16] MEDS ORDERED: morphine 4 MG/ML VIAL IV STA (12:32)
[2017-01-16 13:06] LABS: ADD SCAN DIFF NO
[2017-01-16 13:11] LABS: BASOPHILS % 0.2 % (0.0-2.0); EOSINOPHILS # 0.1 10^3/ul (0.0-0.5); EOSINOPHILS % 1.1 % (0.0-7.0); HEMATOCRIT 40.2 % (37.0-47.0); LYMPHOCYTES # 1.3 10^3/ul (0.8-2.9); LYMPHOCYTES % 20.1 % (15.0-51.0); MEAN CORPUSCULAR HEMOGLOBIN 29.3 pg (29.0-33.0); MEAN CORPUSCULAR HGB CONC 34.8 g/dl (32.0-37.0); MEAN CORPUSCULAR VOLUME 84.1 fl (82.0-101.0); MEAN PLATELET VOLUME 11.8 fl (7.4-10.4); MONOCYTE # 0.4 10^3/ul (0.3-0.9); MONOCYTES % 6.1 % (0.0-11.0); NEUTROPHIL # 4.8 10^3/ul (1.6-7.5); NEUTROPHILS % 72.3 % (39.0-77.0); PLATELET COUNT 163 10^3/UL (140-415); RED BLOOD COUNT 4.78 10^6/ul (4.20-5.40); RED CELL DISTRIBUTION WIDTH 12.6 % (11.5-14.5); WHITE BLOOD COUNT 6.6 10^3/ul (4.8-10.8)
[2017-01-16 13:29] LABS: ALBUMIN 4.7 g/dl (3.3-4.9); ALBUMIN/GLOBULIN RATIO 1.56; BILIRUBIN,INDIRECT 0.6 mg/dl (0-1.1); BILIRUBIN,TOTAL 0.6 mg/dl (0.2-1.3); CALCIUM 9.5 mg/dl (8.4-10.2); CREATININE 0.62 mg/dl (0.44-1.00); POTASSIUM 4.1 mmol/L (3.5-5.1); TOTAL PROTEIN 7.7 g/dl (6.1-8.1)
[2017-01-16 13:32] LABS: ADD UMIC YES; UR ASCORBIC ACID NEGATIVE (NEGATIVE); UR BILIRUBIN (Dip) NEGATIVE (NEGATIVE); UR BLOOD (Dip) 1+ mg/dL (NEGATIVE); UR CLARITY CLEAR (CLEAR); UR COLOR COLORLESS (YELLOW); UR GLUCOSE (Dip) NEGATIVE (NEGATIVE); UR KETONES (Dip) NEGATIVE (NEGATIVE); UR LEUKOCYTE ESTERASE (Dip) NEGATIVE Leu/ul (NEGATIVE); UR NITRITE (Dip) NEGATIVE (NEGATIVE); UR RBC 0 /HPF (0-5); UR SPECIFIC GRAVITY (Dip) 1.005 (1.003-1.030); UR TOTAL PROTEIN (Dip) NEGATIVE (NEGATIVE); UR UROBILINOGEN (Dip) NEGATIVE (NEGATIVE)
[2017-01-16] MEDS ORDERED: ONDA8TAB14 PO (13:43)
[2017-01-16] MEDS ORDERED: ACET500C5 PO (13:43)
--- NOTE | 2017-01-16 14:57 | RADRPT ---
PROCEDURE: CT abdomen and pelvis without contrast. CLINICAL INDICATION: Abdominal Pain TECHNIQUE: CT scan of the abdomen and pelvis without contrast was performed and is reconstructed a t 2.5 mm contiguous axial intervals from the dome of the diaphragm to the inferior pubic rami.. The patient was scanned without intravenous contrast. Sagittal and coronal reformatted images were obt ained from the axial source images. The calculated radiation dose measures 519 mGy centimeters. The CTDI measures 10 mGy. COMPARISON: A wall of the wall of the wall at all Y nanometer 100 the foot 08/14 very early fifth move 00:18 and O with a overall with a fall was with wall wall small amount wall FINDINGS: The lung bases are clear of any infiltrate or nodule. No effusion is seen. The liver is of normal size, contour and attenuation with no mass or ductal dilatation. No gallston es are visualized. No splenic, adrenal or pancreatic abnormalities present. Kidneys are of normal size and contour. No hydronephrosis, calculus or masses seen. Ureters are o f normal course and caliber with no stone. No bladder mass or stone is present. There is no aneurysm. No adenopathy is present. No bowel mass or obstruction is present. The appendix is normal. No phlegmon, ascites or pneumop eritoneum is visualized. The osseous structures are intact. IMPRESSION: No evidence of urolithiasis, obstructive uropathy, diverticulitis or appendicitis. .Cm Mcneil MD, MD Date Time Electronically viewed and signed by .Cm Mcneil MD, MD on 01/16/2017 14:57 .A/
[2017-01-16] MEDS ORDERED: FAMO-18 PO (15:04)
--- NOTE | 2017-01-16 15:08 | ERD ---
ER Documentation Chief Complaint Date/Time DATE: 01/16/17 TIME: 15:06 Chief Complaint AP SINCE YESTERDAY HPI This 41-year-old female presents with mid abdominal pain starting yesterday. It radiates slightly to the right lower abdomen. She has nausea but no vomiting. There is no history of fevers or urinary complaints. ROS All systems reviewed and are negative except as per history of present illness. Medications Home Meds Active Scripts Famotidine* (Pepcid*) 20 Mg Tablet, 20 MG PO BID for 10 Days, TAB Prov:TONG VASQUEZ MD 01/16/17 Ondansetron (Ondansetron Odt) 8 Mg Tab.rapdis, 8 MG PO Q6H Y for NAUSEA AND/OR VOMITING, #10 TAB Prov:TONG VASQUEZ MD 01/16/17 Acetaminophen* (Tylophen*) 500 Mg Capsule, 1 CAP PO Q6H Y for PAIN AND OR ELEVATED TEMP, #15 CAP Prov:TONG VASQUEZ MD 01/16/17 Allergies Allergies: Coded Allergies: No Known Allergy (Verified , 08/22/16) PMhx/Soc History of Surgery: Yes () Anesthesia Reaction: No Hx Neurological Disorder: No Hx Respiratory Disorders: No Hx Cardiac Disorders: No Hx Psychiatric Problems: No Hx Miscellaneous Medical Probl: Yes (Vaginal Delivery x 3; ) Hx Alcohol Use: No Hx Substance Use: No Hx Tobacco Use: No Smoking Status: Never smoker Physical Exam Vitals Vital Signs Date Time Temp Pulse Resp B/P Pulse Ox O2 Delivery O2 Flow Rate FiO2 01/16/17 11:32 98.1 79 20 117/68 99 Physical Exam Const: [] Alert, [id number] per Head: Atraumatic Eyes: Normal Conjunctiva ENT: Normal External Ears, Nose and Mouth. Neck: Full range of motion..~ No meningismus. Resp: Clear to auscultation bilaterally Cardio: Regular rate and rhythm, no murmurs Abd: Soft, mild tenderness in the umbilical area in the right lower quadrant. No rebound. No [place] sign. R, non distended. Normal bowel sounds Skin: No petechiae or rashes Back: No midline or flank tenderness Ext: No cyanosis, or edema Neur: Awake and alert Psych: Normal Mood and Affect Result Diagram: 01/16/17 1300 01/16/17 1300 Results 24 hrs Laboratory Tests Test 01/16/17 13:00 01/16/17 13:05 White Blood Count 6.610^3/ul Red Blood Count 4.7810^6/ul Hemoglobin 14.0g/dl Hematocrit 40.2% Mean Corpuscular Volume 84.1fl Mean Corpuscular Hemoglobin 29.3pg Mean Corpuscular Hemoglobin Concent 34.8g/dl Red Cell Distribution Width 12.6% Platelet Count 76998^3/UL Mean Platelet Volume 11.8fl Neutrophils % 72.3% Lymphocytes % 20.1% Monocytes % 6.1% Eosinophils % 1.1% Basophils % 0.2% Nucleated Red Blood Cells % 0.0/100WBC Neutrophils # 4.810^3/ul Lymphocytes # 1.310^3/ul Monocytes # 0.410^3/ul Eosinophils # 0.110^3/ul Basophils # 0.010^3/ul Nucleated Red Blood Cells # 0.010^3/ul Sodium Level 141mmol/L Potassium Level 4.1mmol/L Chloride Level 103mmol/L Carbon Dioxide Level 25mmol/L Anion Gap 17 Blood Urea Nitrogen 16mg/dl Creatinine 0.62mg/dl Glucose Level 89mg/dl Calcium Level 9.5mg/dl Total Bilirubin 0.6mg/dl Direct Bilirubin 0.00mg/dl Indirect Bilirubin 0.6mg/dl Aspartate Amino Transf (AST/SGOT) 19IU/L Alanine Aminotransferase (ALT/SGPT) 29IU/L Alkaline Phosphatase 71IU/L Total Protein 7.7g/dl Albumin 4.7g/dl Globulin 3.00g/dl Albumin/Globulin Ratio 1.56 Lipase 130U/L Urine Color COLORLESS Urine Clarity CLEAR Urine pH 5.0 Urine Specific [place] 1.005 Urine Ketones NEGATIVEmg/dL Urine Nitrite NEGATIVEmg/dL Urine Bilirubin NEGATIVEmg/dL Urine Urobilinogen NEGATIVEmg/dL Urine Leukocyte Esterase NEGATIVELeu/ul Urine Microscopic RBC 0/HPF Urine Microscopic WBC 0/HPF Urine Hemoglobin 1+mg/dL Urine Glucose NEGATIVEmg/dL Urine Total Protein NEGATIVEmg/dl Current Medications Medications (Trade) Dose Ordered Sig/Anbial Route PRN Reason Start Time Stop Time Status Last Admin Dose Admin Morphine Sulfate (morphine) 4 mg ONCE STAT IV 01/16/17 12:32 01/16/17 12:34 DC 01/16/17 13:07 Ondansetron HCl (Zofran Inj) 4 mg ONCE STAT IV 01/16/17 12:32 01/16/17 12:34 DC 01/16/17 13:06 Famotidine (Pepcid Iv) 20 mg ONCE STAT IV 01/16/17 12:32 01/16/17 12:34 DC 01/16/17 13:06 Procedures/MDM Urine is negative for infection. HCG is negative. CBC and CMP likewise normal. Patient was given morphine 4 mg IV and Zofran 4 mg IV for significant pain. Given the uncertain cause of pain in the mid abdomen radiating to the right lower quadrant CT abdomen pelvis was performed which read as normal by the radiologist. Patient had benign abdomen on serial exam. Patient presents with mid abdominal pain of uncertain etiology. She may have gastritis or viral illness. Current signs and symptoms do not suggest hepatobiliary disease, appendicitis, acute abdomen, complications of , additional causes of presenting complaints. She will treated with short course of Tylenol, Zofran and Pepcid and further observation at home . The patient was stable with no new complaints during the ER course. Clinically, there is no current evidence to suggest meningitis, sepsis, acute abdomen, pneumonia, acute coronary syndrome, pulmonary embolism, or any other emergent condition appearing to require further evaluation or hospitalization. The patient should certainly return for any new or worsening symptoms per the aftercare instructions. They should otherwise follow-up with her primary care doctor for reevaluation this week. Departure Diagnosis: Primary Impression: Vomiting Vomiting type: unspecified Vomiting Intractability: non-intractable Nausea presence: unspecified Qualified Code: R11.10 - Non-intractable vomiting, presence of nausea not specified, unspecified vomiting type Additional Impression: Abdominal pain Abdominal location: epigastric Qualified Code: R10.13 - Epigastric pain Condition: Stable Patient Instructions: Abdominal Pain, Vomiting (6Y-Adult) Additional Instructions: POSIBLEMENTE GASTRITIS O VIRUS. Examines normal hoy. Cheque otro vez con cruz doctor primario en el proximo talamantes or regresa para mas o nueva simptomas. TONG VASQUEZ MD Jan 16, 2017 15:08
[2017-01-16 15:34] VITALS: BP 115/65; PULSE 81; RESP 18; TEMP 98.1
== END 2017-01-16 15:35 | disposition home or self-care (01) ==
LOC: FTE 11:26
DX: R11.10 Vomiting, unspecified (principal); R10.13 Epigastric pain
CPT/HCPCS: 36415; 74176; 80053; 81001; 83690; 85025; 96374; 96375; J2270; J2405; Z7502; Z7610